=== PATIENT | male | born 1950 | race Caucasian/White ===

== ENCOUNTER 2020-10-14 08:57 | Outpatient (REF) | payer MEDICARE, SELFPAY ==
--- NOTE | ~2020-10-14 | US_ITS ---
EXAMINATION: US RETROPERITONEAL LIMITED (AORTA) CLINICAL INFORMATION: Smoker. COMPARISON: None. TECHNIQUE: Grayscale, color Doppler and spectral Doppler evaluation of the abdominal aorta. FINDINGS: There is minimal enlargement of the proximal abdominal aorta, measuring 3.1 cm. Minimal noncalcified atherosclerotic plaque is evident. The measurements of the aorta in maximum AP and transverse dimensions respectively are as follows: PROXIMAL: 3.1 x 2.4 cm. MID: 2.4 x 2.4 cm. PSV: 41.9 cm/sec. DISTAL: 2.1 x 2.2 cm. The measurements of the common iliac arteries are as follows: AP: Right: 1.2 cm. Left: 0.95 cm. TRANS: Right: 1.1 cm. Left: 1.2 cm. US/US abdominal aortic aneurysm IMPRESSION: 1. There is minimal enlargement of the proximal abdominal aorta, measuring 3.1 cm.
== END 2020-10-14 08:58 | disposition home or self-care (01) ==
LOC: HO.HMGCX 08:57
PROVIDERS: PCP Internal Medicine; Visit Provider Internal Medicine
DX: F17.200 Nicotine dependence, unspecified, uncomplicated (principal)
CPT/HCPCS: 76706

== ENCOUNTER → 2020-10-30 13:47 | Outpatient (BNVA) | payer MEDICARE, SELFPAY | PROVIDERS: PCP Internal Medicine; Referring Provider Internal Medicine; Visit Provider Surgery | DX: K40.90 Unilateral inguinal hernia, without obstruction or gangrene, not specified as recurrent (principal); N50.89 Other specified disorders of the male genital organs | CPT/HCPCS: 99202 ==

== ENCOUNTER 2020-11-11 14:13 | Outpatient (REF) | payer MEDICARE, SELFPAY ==
--- NOTE | ~2020-11-11 | US_ITS ---
EXAMINATION: US SCROTUM CLINICAL INFORMATION: Scrotal mass. COMPARISON: None TECHNIQUE: A sonogram of the scrotum was performed assessing avendano-scale appearance and color Doppler flow. Spectral Doppler analysis of the arterial and venous flow were performed in the testes bilaterally. FINDINGS: RIGHT: Right testicle measures 4.82 x 2.17 x 3.07 cm, volume 16.8 mL. There are small calcifications. . Spectral Doppler analysis of the arterial and venous flow is normal in the right testis. Right epididymal head is normal in size. There is a small right hydrocele. No right varicocele is seen. Right epididymal Doppler flow is normal. LEFT: Left testicle measures 4.73 x 2.61 x 3.35 cm, volume 21.6 mL. There are small calcifications. Spectral Doppler analysis of the arterial and venous flow is normal in the left testis. Left epididymal head is normal in size. There is a 4 mm epididymal head cyst. There is a small left hydrocele. No left varicocele is seen. Left epididymal Doppler flow is normal. There is a left scrotal hernia with peristalsis suggestive of bowel. US/US scrotum IMPRESSION: Left scrotal hernia probably containing bowel. Small bilateral testicular calcifications. No focal testicular mass seen. Small bilateral hydroceles. Small left epididymal head cyst.
== END 2020-11-11 14:14 | disposition home or self-care (01) ==
LOC: HO.HMGCX 14:13
PROVIDERS: Visit Provider Surgery
DX: N50.89 Other specified disorders of the male genital organs (principal)
CPT/HCPCS: 76870

== ENCOUNTER → 2020-11-21 15:03 | Outpatient (BNVA) | payer MEDICARE, SELFPAY | PROVIDERS: PCP Internal Medicine; Referring Provider Internal Medicine; Visit Provider Surgery | DX: Z01.818 Encounter for other preprocedural examination (principal); K40.90 Unilateral inguinal hernia, without obstruction or gangrene, not specified as recurrent; F17.200 Nicotine dependence, unspecified, uncomplicated | CPT/HCPCS: 99212 ==

== ENCOUNTER 2020-12-06 08:50 | Day surgery (SDC) | payer MEDICARE, SELFPAY ==
[2020-11-28 15:07] VITALS: BMI 28.6
--- NOTE | 2020-12-04 12:22 | P.CONAN_ITS ---
Documented by User: Selma Wilhelm 12/04/20 12:23 HPI - Anesthesia Eval Consult details Narrative: 70yo M for Left Hernia Repair Inguinal with Mesh PMFSH Active Problems Active Problems: All Active Problems (Updated 11/28/20 @ 15:12 by Chelita Lewis) Smoker (Acute) Inguinal hernia (Acute) Right inguinal hernia (Acute) Scrotal mass (Acute) Past Medical History Medical History COVID-19 vaccine series completed Depression Inguinal hernia Right inguinal hernia Scrotal mass Situational anxiety Smoker Wears dentures Surgical History Surgical History Hx of colonoscopy Social History Social History Alcohol intake: current Alcohol intake frequency: holidays/special occasions only Patient Tobacco Use Status: Current everyday Tobacco user Tobacco use type: Cigarette Cigarettes Per Day: 10 Years Smoked: 20 Smoked in Last 30 Days: Yes Use of substances other than those prescribed or required for medical reasons: Yes Substance Use Frequency: Daily Are you DNR?: No Advance Directives: No Advance Directives Information Provided: No Advance Directives on File: No Meds Allergies Allergy/AdvReac Type Severity Reaction Status Date / Time No Known Allergies Allergy Verified 11/28/20 15:05 Home Medications Medication Instructions Recorded Confirmed Last Taken Type No Known Home Meds 10/30/20 11/28/20 Unknown History Exam Exam Date and Time: December 04, 2020 1222 Height,Weight and Vital Signs: Height 5 ft 5 in Weight 78.018 kg Assessment and Plan Assessment Anesthesia Assessment: Chart Reviewed Documented by User: Radha Minor 12/06/20 10:59 PMFSH Past Medical History Medical History COVID-19 vaccine series completed Depression Inguinal hernia Right inguinal hernia Scrotal mass Situational anxiety Smoker Wears dentures Family History Family history of problems with anesthesia: No Surgical History Surgical History Hx of colonoscopy History of Problems with Anesthesia: No Social History Social History Alcohol intake: current Alcohol intake frequency: holidays/special occasions only Patient Tobacco Use Status: Current everyday Tobacco user Tobacco use type: Cigarette Cigarettes Per Day: 10 Years Smoked: 20 Smoked in Last 30 Days: Yes Use of substances other than those prescribed or required for medical reasons: Yes Substance Use Frequency: Daily Are you DNR?: No Advance Directives: No Advance Directives Information Provided: No Advance Directives on File: No Meds Allergies Allergy/AdvReac Type Severity Reaction Status Date / Time No Known Allergies Allergy Verified 11/28/20 15:05 Home Medications Medication Instructions Recorded Confirmed Last Taken Type No Known Home Meds 10/30/20 11/28/20 Unknown History Exam Height,Weight and Vital Signs: Vital Signs Temp Pulse Resp BP Pulse Ox 12/06/20 09:36 97.2 F 73 16 120/82 94 Airway Mallampati Class: II TM Dist: >3cm Neck ROM: Full Denture: Upper Loose/Missing/Broken Teeth: Yes (Many broken bottom) Heart: RRR Lungs: CTAB Assessment and Plan Assessment Anesthesia Assessment: Anesthesia Plan Discussed and Chart Reviewed Final Anesthetic Review NPO: Yes ASA Class: II Final Preanesthetic Review: No Changes in Pt Med Stat, Meds/Allgs Chart Rev iewed, Consent Obtained/Reviewed and Anes Risks/Benef Reviewed Patient Risk: Low Procedure Risk: Low Assessment/Block/Sedation in SS: Assess/Block/Sedation-SS Anesthetic Plan Anesthetic Plan: GA Disposition: Standard PACU
[2020-12-06] VITALS (11 sets, daily range): BP systolic 110–138; BP diastolic 67–82; PULSE 54–73; RESP 16–17; TEMP 36.1–36.2; O2SAT 94–98
[2020-12-06] MEDS: Lactated Ringers 1,000 ML 100 ML IVCONT (09:47)
--- NOTE | 2020-12-06 11:01 | MHC.SHP ---
Pre-Procedural Eval Section A Date of Service: 12/06/20 Section B Chief Complaint: Inguinal hernia Allergies: Allergies Allergy/AdvReac Type Severity Reaction Status Date / Time No Known Allergies Allergy Verified 11/28/20 15:05 Plan I have reviewed the history and physical and performed a pertinent physical examination on my patient. No changes have occurred unless specified.
--- NOTE | 2020-12-06 12:39 | P.OP_ITS ---
Operative Note Operative Note Date of Service: 12/06/20 Narrative: Preop diagnosis: large left inguinal scrotal hernia Postop diagnosis: Large left inguinal scrotal hernia with chronically incarcerated loops of sigmoid colon Procedure: Repair of a large inguinal scrotal hernia with mesh, with reduction of chronically incarcerated loops of sigmoid colon, lysis of adhesions Surgeon: Han Sanford MD no respiratory equipment assistant The patient is a 70-year-old male with a large hernia on the left groin extending all the way to the scrotum. He had described significant discomfort with this and wanted to proceed with repair. He understood the technique of repair and he was aware of the risks, benefits, and alternatives. He had given consent. His ultrasound did show bowel loops within the hernia in the scrotum. He was brought to the operating room and placed supine on the table under general anesthesia via laryngeal mask airway. The left groin was prepped and draped in the usual sterile fashion. A surgical time-out was done. The patient received cefazolin 2 g IV preoperatively. I marked the planned line of incision along an imaginary line from the anterior superior iliac spine to the pubic ramus. I infiltrated this area with lidocaine 1%. I made an incision using blade 15 and this was carried down through the full-thickness of skin And subcutaneous fat. We continued to dissect the thick subcutaneous fat until was able to reach external oblique aponeurosis. By doing so, I was able to visualize a large hernia sac. I was able to identify the external ring. I opened the external oblique aponeurosis adjacent to the external ring using electrocautery. This allowed me to directly visualize the internal oblique aponeurosis and the internal ring itself. I applied hemostats to the edges of the divided external oblique aponeurosis overlying the inguinal canal. The hernia was very large and we could not isolate this from the spermatic cord at all. I therefore opened up the hernia sac. By opening this up, I was able to visualize the contents of the hernia. There was actually loops of sigmoid colon within the hernia itself. We had to pull this out of the scrotum and were able to expose this into the field. There was note of large amounts of omentum as well within the hernia. Parts of the long loops of sigmoid colon were markedly adherent to the sac. Since the sac was intimately adherent to the cord, we could not separate this safely. I therefore attempted to reduce the loops of sigmoid colon initially through the internal ring. However because of the adhesions, we were unable to do so, so I had to do some careful lysis of adhesions with electrocautery as well as with Metzenbaum scissors to release the loops of sigmoid from the sac. By doing so was able to eventually completely reduce the loops of sigmoid and omentum back into the peritoneal cavity through the internal ring. By reducing the entire hernia completely, I was able to identify the cord contents better. I could see the vas deferens well and its accompanying vessel s. I was able to therefore sharply divide the thick and large hernia sac with electrocautery to separate this from the rest of the cord contents and reduce this through the internal ring. I was able to pass a [place] drain around the spermatic cord to use this for retraction well doing this dissection. Eventually was able to completely separate the entire cord contents off of the rest of the sac. Once we had clearly identified the cord structures, I was able to also define the floor of the canal. There was note of a large defect on the internal ring so I used an extra-large Prolene plug to reinforce this. This plug was positioned through the internal ring and was secured using its inner leaves with Prolene 2 sutures to shelving edge of the inguinal ligament laterally and the internal oblique superiorly and medially. I then used the keyhole mesh. The tails of the mesh were passed around the cord at the level of the internal ring and were secured with Prolene to sutures. I flattened the quadrant floor of the canal. I secured the he will mesh to the floor of the canal using Prolene to sutures to the pubic ramus inferomedially, and the shelving edge of the inguinal ligament laterally , the internal oblique superiorly as well as medially with multiple Prolene 2 sutures. The keyhole mesh appeared to be in good position with adequate coverage of the weak floor. I observed for hemostasis. Once hemostasis ensured, I proceeded to then copiously irrigate. I removed the [place] drain and closed the external oblique aponeurosis with a running Dexon 2-0 stitch to re-create the external ring. I reapposed the thick subcutaneous layer Dexon 3-0 sutures. Skin closure was achieved with Dexon 4-0 subcuticular running stitch. I infiltrated the area with Marcaine 0.5% for postop analgesia. Steri-Strips and dressings were applied. The procedure was then completed The patient tolerated the procedure well. There were no complications noted. Initial and final counts of sponges and instruments were correct. Estimated blood loss was about 30 cc. The patient was extubated without difficulty and transferred to the recovery room with stable vital signs.
--- NOTE | 2020-12-06 12:51 | PM.OP ---
Brief Operative Note Date of Service: 12/06/20 Pre-op diagnosis: left inguinal scrotal hernia Post-op diagnosis: other ( left inguinal scrotal hernia with chronically incarcerated loops of sigmoid colon) Procedure: repair left inguinal hernia, reduction of chronically incarcerated sigmoid loops, lysis of adhesions Implants: mesh Surgeon: Han Sanford MD Anesthesia: GLMA Was an Security Control Center Operator used for this Procedure?: No Estimated blood loss (mL): 30 Pathology: none sent Condition: stable Disposition: PACU
[2020-12-06] MEDS: Ketorolac Tromethamine 15 MG/ML VIAL IVPUSH (13:02)
[2020-12-06] MEDS: Acetaminophen 325 MG TABLET 650 MG PO (13:02)
[2020-12-06] MEDS: oxyCODONE HCl Immed Release 5 MG TABLET PO (13:02)
[2020-12-06] MEDS: fentaNYL citrate/PF 100 MCG/2 ML VIAL 25 MCG IVPUSH (13:38)
== END 2020-12-06 15:00 | disposition home or self-care (01) ==
PROVIDERS: PCP Internal Medicine; Visit Provider Surgery
PROC: (CPT 49507; principal; 2020-12-06 11:30)
DX: K40.30 Unilateral inguinal hernia, with obstruction, without gangrene, not specified as recurrent (principal); K66.0 Peritoneal adhesions (postprocedural) (postinfection); F41.8 Other specified anxiety disorders; F17.210 Nicotine dependence, cigarettes, uncomplicated
CPT/HCPCS: 49507; C1781; J0690; J1100; J1170; J1885; J2250; J2405; J3010

== ENCOUNTER → 2020-12-23 10:29 | Outpatient (BNVA) | payer MEDICARE, SELFPAY | PROVIDERS: PCP Internal Medicine; Referring Provider Internal Medicine; Visit Provider Surgery | DX: K40.90 Unilateral inguinal hernia, without obstruction or gangrene, not specified as recurrent (principal) | CPT/HCPCS: 99212 ==

== ENCOUNTER → 2021-01-23 09:57 | Outpatient (BNVA) | payer MEDICARE, SELFPAY | PROVIDERS: PCP Internal Medicine; Visit Provider Surgery | DX: K40.90 Unilateral inguinal hernia, without obstruction or gangrene, not specified as recurrent (principal); F17.210 Nicotine dependence, cigarettes, uncomplicated | CPT/HCPCS: 99212 ==

== ENCOUNTER 2021-08-01 09:26 | Outpatient (REF) | payer OTHER, SELFPAY ==
[2021-08-01 09:53] LABS: MANUAL DIFF FLAG NO
[2021-08-01 10:24] LABS: Basophils Percent Auto 0.3 % (0-2); Eosinophils Absolute Auto 0.2 X10*3/uL (0.0-0.4); Hematocrit 52.5 % (42.0-52.0); Hemoglobin 17.8 g/dl (14.0-18.0); Imm Gran Abs Auto 0.03 X10*3/uL (0.00-0.03); Imm Gran Pct Auto 0.3 % (0.0-0.4); Lymphocytes Absolute Auto 3.4 X10*3/uL (1.2-4.9); Lymphocytes Percent Auto 35.1 % (20-40); Mean Corpuscular HGB Conc 33.9 g/dl (31.0-36.0); Mean Corpuscular Hemoglobin 31.8 pg (27.0-33.0); Mean Corpuscular Volume 93.9 fL (80.0-98.0); Mean Platelet Volume 9.6 fL (9.4-12.4); Monocytes Absolute Auto 0.7 X10*3/uL (0.1-1.2); Monocytes Percent Auto 7.7 % (2-11); Neutrophils Absolute Auto 5.3 x10*3/uL (2.0-8.3); Neutrophils Percent Auto 54.6 % (45-73); Platelet Count 315 X10*3/uL (160-400); Red Blood Count 5.59 X10*6/uL (4.60-5.80); Red Cell Distribution Width 13.2 % (11.0-16.0); White Blood Count 9.6 X10*3/uL (4.8-10.8)
[2021-08-01 11:02] LABS: Alanine Aminotransferase 28 U/L (0-40); Albumin Level 4.4 g/dL (3.5-5.0); Alkaline Phosphatase 124 U/L (39-117); Anion Gap 13 (12-20); Aspartate Amino Transferase 18 U/L (5-37); Bilirubin Total 2.3 mg/dL (0.0-1.0); Blood Urea Nitrogen 18 mg/dL (9-16); Calcium 9.9 mg/dL (8.4-10.2); Carbon Dioxide 27 mmol/L (22-29); Chloride 101 mmol/L (96-108); Cholesterol 258 mg/dL; Estimated Glomerular Filt Rate > 60; Glucose Random 97 mg/dL (60-115); HDL Cholesterol 31 mg/dL; LDL Cholesterol Calculated 184 mg/dl; Potassium 4.7 mmol/L (3.3-5.1); Sodium 136 mmol/L (135-145); Total Protein 7.1 g/dL (6.5-8.0); Triglycerides 216 mg/dL
[2021-08-01 11:14] LABS: Prostate Specific Antigen 1.09 ng/mL (<0.05-4.0)
== END 2021-08-01 09:27 | disposition home or self-care (01) ==
LOC: HO.LAB 09:26
PROVIDERS: PCP Internal Medicine; Visit Provider Internal Medicine
DX: Z00.00 Encounter for general adult medical examination without abnormal findings (principal); Z12.5 Encounter for screening for malignant neoplasm of prostate; Z13.31 Encounter for screening for depression; F12.10 Cannabis abuse, uncomplicated; Z72.0 Tobacco use
CPT/HCPCS: 36415; 80053; 80061; 84153; 85025

== ENCOUNTER 2021-11-14 09:57 | Outpatient (REF) | payer OTHER, SELFPAY ==
[2021-11-14 11:06] LABS: Alanine Aminotransferase 36 U/L (0-40); Albumin Level 4.5 g/dL (3.5-5.0); Alkaline Phosphatase 283 U/L (39-117); Anion Gap 15 (12-20); Aspartate Amino Transferase 20 U/L (5-37); Bilirubin Total 1.2 mg/dL (0.0-1.0); Blood Urea Nitrogen 13 mg/dL (9-16); Carbon Dioxide 26 mmol/L (22-29); Chloride 103 mmol/L (96-108); Cholesterol 153 mg/dL; Estimated Glomerular Filt Rate > 60; Glucose Random 93 mg/dL (60-115); HDL Cholesterol 35 mg/dL; LDL Cholesterol Calculated 66 mg/dl; Potassium 4.6 mmol/L (3.3-5.1); Sodium 139 mmol/L (135-145); Total Protein 7.3 g/dL (6.5-8.0); Triglycerides 263 mg/dL
== END 2021-11-14 09:58 | disposition home or self-care (01) ==
LOC: HO.LAB 09:57
PROVIDERS: PCP Internal Medicine; Visit Provider Internal Medicine
DX: E78.2 Mixed hyperlipidemia (principal); Z72.0 Tobacco use
CPT/HCPCS: 36415; 80053; 80061

== ENCOUNTER 2022-07-20 08:37 | Outpatient (REF) | payer OTHER, SELFPAY ==
[2022-07-20 09:37] LABS: Alanine Aminotransferase 27 U/L (0-40); Albumin Level 4.3 g/dL (3.5-5.0); Alkaline Phosphatase 169 U/L (39-117); Anion Gap 16 (12-20); Aspartate Amino Transferase 21 U/L (5-37); Bilirubin Total 1.5 mg/dL (0.0-1.0); Blood Urea Nitrogen 12 mg/dL (9-16); Calcium 9.8 mg/dL (8.4-10.2); Carbon Dioxide 25 mmol/L (22-29); Chloride 101 mmol/L (96-108); Cholesterol 154 mg/dL; Estimated Glomerular Filt Rate > 60; Glucose Random 138 mg/dL (60-115); HDL Cholesterol 31 mg/dL; LDL Cholesterol Calculated 81 mg/dl; Potassium 4.6 mmol/L (3.3-5.1); Sodium 137 mmol/L (135-145); Total Protein 6.8 g/dL (6.5-8.0); Triglycerides 211 mg/dL
== END 2022-07-20 08:38 | disposition home or self-care (01) ==
LOC: HO.LAB 08:37
PROVIDERS: PCP Internal Medicine; Visit Provider Internal Medicine
DX: E78.2 Mixed hyperlipidemia (principal); I10 Essential (primary) hypertension; Z72.0 Tobacco use
CPT/HCPCS: 36415; 80053; 80061

== ENCOUNTER 2023-07-23 10:52 | Outpatient (REF) | payer MEDICARE, SELFPAY ==
[2023-07-23 11:32] LABS: Alanine Aminotransferase 25 U/L (0-40); Albumin Level 4.1 g/dL (3.5-5.0); Alkaline Phosphatase 129 U/L (39-117); Anion Gap 14 (12-20); Aspartate Amino Transferase 18 U/L (5-37); Bilirubin Total 0.9 mg/dL (0.0-1.0); Blood Urea Nitrogen 13 mg/dL (9-16); Calcium 9.8 mg/dL (8.4-10.2); Carbon Dioxide 26 mmol/L (22-29); Chloride 106 mmol/L (96-108); Cholesterol 256 mg/dL (<200); Estimated Glomerular Filt Rate > 60; Glucose Random 91 mg/dL (60-115); HDL Cholesterol 35 mg/dL (>40); LDL Cholesterol Calculated 175 mg/dL (<100); Potassium 4.2 mmol/L (3.3-5.1); Sodium 142 mmol/L (135-145); Total Protein 7.4 g/dL (6.5-8.0); Triglycerides 233 mg/dL (<150)
== END 2023-07-23 10:53 | disposition home or self-care (01) ==
LOC: HO.LAB 10:52
PROVIDERS: PCP Internal Medicine; Visit Provider Internal Medicine
DX: E78.2 Mixed hyperlipidemia (principal); Z72.0 Tobacco use
CPT/HCPCS: 36415; 80053; 80061

== ENCOUNTER 2023-10-20 08:48 | Outpatient (REF) | payer MEDICARE, SELFPAY ==
[2023-10-20 09:45] LABS: Alanine Aminotransferase 34 U/L (0-40); Albumin Level 4.2 g/dL (3.5-5.0); Alkaline Phosphatase 163 U/L (39-117); Anion Gap 13 (12-20); Aspartate Amino Transferase 23 U/L (5-37); Bilirubin Total 2.8 mg/dL (0.0-1.0); Blood Urea Nitrogen 20 mg/dL (9-16); Calcium 9.6 mg/dL (8.4-10.2); Carbon Dioxide 25 mmol/L (22-29); Chloride 104 mmol/L (96-108); Cholesterol 125 mg/dL (<200); Estimated Glomerular Filt Rate > 60; Glucose Random 107 mg/dL (60-115); HDL Cholesterol 32 mg/dL (>40); LDL Cholesterol Calculated 64 mg/dL (<100); Potassium 4.1 mmol/L (3.3-5.1); Sodium 138 mmol/L (135-145); Total Protein 7.2 g/dL (6.5-8.0); Triglycerides 148 mg/dL (<150)
[2023-10-20 09:59] LABS: Prostate Specific Antigen Scr 1.37 ng/mL (<0.05-4.0)
== END 2023-10-20 08:49 | disposition home or self-care (01) ==
LOC: HO.LAB 08:48
PROVIDERS: PCP Internal Medicine; Visit Provider Internal Medicine
DX: E78.00 Pure hypercholesterolemia, unspecified (principal); I10 Essential (primary) hypertension; Z68.28 Body mass index [BMI] 28.0-28.9, adult; Z72.0 Tobacco use; Z12.5 Encounter for screening for malignant neoplasm of prostate
CPT/HCPCS: 36415; 80053; 80061; 84153

== ENCOUNTER 2024-04-20 08:35 | Outpatient (REF) | payer MEDICARE, SELFPAY ==
[2024-04-20 09:27] LABS: Alanine Aminotransferase 38 U/L (0-40); Albumin Level 4.2 g/dL (3.5-5.0); Alkaline Phosphatase 150 U/L (39-117); Anion Gap 12 (12-20); Aspartate Amino Transferase 23 U/L (5-37); Bilirubin Total 1.1 mg/dL (0.0-1.0); Blood Urea Nitrogen 11 mg/dL (9-16); Calcium 9.9 mg/dL (8.4-10.2); Carbon Dioxide 29 mmol/L (22-29); Chloride 105 mmol/L (96-108); Estimated Glomerular Filt Rate > 60; Glucose Random 105 mg/dL (60-115); Potassium 4.7 mmol/L (3.3-5.1); Sodium 141 mmol/L (135-145)
== END 2024-04-20 08:36 | disposition home or self-care (01) ==
LOC: HO.LAB 08:35
PROVIDERS: PCP Internal Medicine; Visit Provider Internal Medicine
DX: E78.00 Pure hypercholesterolemia, unspecified (principal); Z72.0 Tobacco use
CPT/HCPCS: 36415; 80053

== ENCOUNTER 2024-08-22 07:34 | Outpatient (REF) | payer MEDICARE, SELFPAY ==
[2024-08-22 08:54] LABS: Alanine Aminotransferase 32 U/L (0-40); Albumin Level 4.3 g/dL (3.5-5.0); Alkaline Phosphatase 144 U/L (39-117); Anion Gap 9 (12-20); Aspartate Amino Transferase 24 U/L (5-37); Bilirubin Total 1.4 mg/dL (0.0-1.0); Blood Urea Nitrogen 18 mg/dL (9-16); Calcium 9.8 mg/dL (8.4-10.2); Carbon Dioxide 27 mmol/L (22-29); Chloride 107 mmol/L (96-108); Cholesterol 125 mg/dL (<200); Estimated Glomerular Filt Rate > 60; Glucose Random 98 mg/dL (60-115); HDL Cholesterol 26 mg/dL (>40); LDL Cholesterol Calculated 65 mg/dL (<100); Potassium 4.4 mmol/L (3.3-5.1); Sodium 139 mmol/L (135-145); Total Protein 7.2 g/dL (6.5-8.0); Triglycerides 171 mg/dL (<150)
[2024-08-22 09:23] LABS: Prostate Specific Antigen Scr 1.73 ng/mL (<0.05-4.0)
== END 2024-08-22 07:35 | disposition home or self-care (01) ==
LOC: HO.LAB 07:34
PROVIDERS: PCP Internal Medicine; Visit Provider Internal Medicine
DX: E78.00 Pure hypercholesterolemia, unspecified (principal); N40.0 Benign prostatic hyperplasia without lower urinary tract symptoms; Z68.29 Body mass index [BMI] 29.0-29.9, adult; Z72.0 Tobacco use; Z12.5 Encounter for screening for malignant neoplasm of prostate
CPT/HCPCS: 36415; 80053; 80061; 84153

== ENCOUNTER 2025-03-15 11:01 | Outpatient (REF) | payer OTHER, SELFPAY ==
[2025-03-15 12:49] LABS: Alanine Aminotransferase 26 U/L (0-40); Albumin Level 4.7 g/dL (3.5-5.0); Alkaline Phosphatase 137 U/L (39-117); Anion Gap 11 (12-20); Aspartate Amino Transferase 20 U/L (5-37); Blood Urea Nitrogen 15 mg/dL (9-16); Calcium 10.1 mg/dL (8.4-10.2); Carbon Dioxide 29 mmol/L (22-29); Chloride 106 mmol/L (96-108); Estimated Glomerular Filt Rate > 60; Potassium 4.9 mmol/L (3.3-5.1); Sodium 141 mmol/L (135-145); Total Protein 7.5 g/dL (6.5-8.0)
== END 2025-03-15 11:02 | disposition home or self-care (01) ==
LOC: HO.LAB 11:01
PROVIDERS: PCP Internal Medicine; Visit Provider Internal Medicine
DX: Z13.31 Encounter for screening for depression (principal); E78.00 Pure hypercholesterolemia, unspecified; Z68.29 Body mass index [BMI] 29.0-29.9, adult; Z72.0 Tobacco use
CPT/HCPCS: 36415; 80053